=== PATIENT | male | born 1980 | race Caucasian/White ===

== ENCOUNTER 2021-09-08 04:52 | Emergency (ER) | payer MEDICAID ==
[~2021-09-08] VITALS: Ht 177.8 cm; Wt 127.2 kg
[2021-09-08] MEDS ORDERED: LORazepam 2 mg/ml vial IM ONE (05:00)
[2021-09-08] MEDS ORDERED: haloperidol lactate 5mg/ml inj IM ONE (05:00)
[2021-09-08] MEDS ORDERED: diphenhydrAMINE 50 mg/ml inj IM ONE (05:00)
[2021-09-08] MEDS ORDERED: haloperidol lactate 5mg/ml inj ONE ×2 (05:01→05:02)
--- NOTE | 2021-09-08 12:02 | NUR ---
Pt awake now
[2021-09-08 12:04] VITALS: BP 106/87
== END 2021-09-08 12:25 | disposition home or self-care (01) ==
LOC: ER 04:52
DX: F10.920 Alcohol use, unspecified with intoxication, uncomplicated (principal); Y90.9 Presence of alcohol in blood, level not specified
CPT/HCPCS: 96372; 99285; J1200; J1630; J2060

== ENCOUNTER 2024-10-29 11:32 | Outpatient (CLI) | payer MEDICAID ==
--- NOTE | 2024-10-29 14:47 | RADIOLOGY REPORT ---
INDICATION: ALCOHOL USE DISORDER TECHNIQUE: Multiple real-time sonographic images of the right upper abdomen were obtained. COMPARISON: None FINDINGS: The liver is increased and coarsened in echogenicity. The liver measures 19cm. No intrahep atic biliary ductal dilatation is noted. The gallbladder wall measures 0.4 cm and is thickened. Gallbladder polyp measuring 0.6 cm. No gallst ones or sludge is seen. The common duct measures 0.4 cm and is unremarkable. No pericholecystic flu id is noted. The right kidney measures 11.8cm. No hydronephrosis. The pancreas is not well visualized due to obscuration from bowel gas. IMPRESSION: Cirrhotic liver morphology with superimposed hepatic steatosis. Nonspecific gallbladder wall thicken ing which can be seen in the setting of chronic liver disease. Gallbladder polyp measuring 0.6 cm. No shadowing gallstones. FOLLOW UP RECOMMENDATIONS: Extremely low-risk polyps (pedunculated [id number]-wall or thin stalk): <9 mm: no follow-up (FU) 10-14 mm: FU at 6, 12 and 24 months > 15 mm: surgical consult Low-risk polyps (pedunculated with a thick or wide stalk, or sessile): < 6 mm: no follow-up 7-9 mm follow-up ultrasound at 12 months 10-14 mm: follow-up ultrasound at 6, 12, 24, and 36 months vs surgical consult > 15 mm: surgical consult Intermediate risk (focal wall-thickening >4mm adjacent to polyp): < 6 mm: FU US at 6, 12, 24, 36 months vs surgical consult > 7 mm: surgical consult Michaelle Aaron, Loraien C, Austin J et al. Management of Incidentally Detected Gallbladder Polyps: Society of Radiologists in Ultrasound Consensus Conference Recommendations. Radiology. 2021;:[id number].
== END 2024-10-29 23:59 | disposition home or self-care (01) ==
LOC: RAD 11:32
PROVIDERS: ATTEND Family Medicine
DX: K74.60 Unspecified cirrhosis of liver (principal); F10.90 Alcohol use, unspecified, uncomplicated
CPT/HCPCS: 76700